=== PATIENT | female | born 1965 | race Caucasian/White ===

== ENCOUNTER 2022-12-03 09:37 | Emergency (ER) | payer OTHER ==
[~2022-12-03] VITALS: Ht 149.9 cm; Wt 56.2 kg
[2022-12-03 09:43] VITALS: BP 187/92; PULSE 67; RESP 18; TEMP 98; O2SAT 99
--- NOTE | 2022-12-03 10:14 | NUR ---
57YO F BIBA PRESENTS W/CP, FACIAL NUMBNESS, HERNANDEZ, DIZZY, SOB, BLURRY VISION THIS AM 0900 WHILE WORKING. PT STATES CP, FACE NUMBNESS HAS BEEN ONGOING X 2MTHS OFF AND ON, SAW PCP-INCREASED HTN MEDS. PT STATES FAMILY HX OF STROKE: FATHER & SISTER. SYMMETRICAL FACE/SMILE/BROW LIFT. 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 PT DENIES N,V,D, FEVER, FLU SYMPTOMS, CHILLS. SKIN INTACT/DRY, NAD, SAFETY MAINTAINED, CALL LIGHT IN REACH. HX: HTN, GERD KNA
[2022-12-03 11:45] LABS: BASOPHILS % (AUTO) 0.5 % (0.0-2.0); EOSINOPHILS # (AUTO) 0.1 K/uL (0-0.4); EOSINOPHILS % (AUTO) 1.9 % (0.0-4.0); HEMATOCRIT 37.5 % (36-48); HEMOGLOBIN 12.5 g/dL (12.0-16.0); LYMPHOCYTES # (AUTO) 2.6 K/uL (2.5-16.5); LYMPHOCYTES % (AUTO) 40.1 % (20.5-51.1); MEAN CORPUSCULAR HEMOGLOBIN 28 pg (27-31); MEAN CORPUSCULAR HGB CONC 33 g/dL (33-37); MEAN CORPUSCULAR VOLUME 83.2 fL (80-94); MONOCYTES # (AUTO) 0.4 K/uL (0.8-1.0); MONOCYTES % (AUTO) 6.1 % (1.7-9.3); NEUTROPHILS # (AUTO) 3.4 K/uL (1.8-7.7); NEUTROPHILS % (AUTO) 51.4 % (42.2-75.2); PLATELET COUNT (AUTO) 263 K/uL (140-450); RED BLOOD CELL COUNT(AUTO) 4.51 MIL/uL (4.20-5.40); RED CELL DISTRIBUTION WIDTH 14.5 % (11.6-13.7); WHITE BLOOD COUNT (AUTO) 6.6 K/uL (4.8-10.8)
[2022-12-03 12:19] LABS: ALBUMIN 3.8 g/dL (3.4-5.0); ANION GAP 12.2 (8-16); CARBON DIOXIDE 26.8 mmol/L (21-32); CREATININE 0.7 mg/dL (0.6-1.3); TOTAL BILIRUBIN 0.6 mg/dL (0.0-1.0)
[2022-12-03 12:45] LABS: LIPASE 201 U/L (73-393)
[2022-12-03 14:00] VITALS: BP 152/78; PULSE 61; RESP 12; TEMP 98; O2SAT 97
--- NOTE | 2022-12-03 14:00 | NUR ---
Patient discharged with v/s stable. Written and verbal after care instructions given and explained. Patient verbalized understanding. Ambulatory with FAMILY Steady gait. All questions addressed prior to discharge. Advised to follow up with PMD. XRAY AND LAB COPY GIVEN
--- NOTE | 2022-12-03 14:00 | NUR ---
IV removed, catheter intact and site benign. Applied folded 4x4 gauze and tape to stop bleeding.
--- NOTE | 2022-12-03 14:05 | NUR ---
The patient's care was reviewed and supervised by Kathy Orozco, RN, RN.
== END 2022-12-03 14:05 | disposition home or self-care (01) ==
LOC: MED 09:37
DX: R07.9 Chest pain, unspecified (principal); R51.9 Headache, unspecified; R10.9 Unspecified abdominal pain; R20.0 Anesthesia of skin; R42 Dizziness and giddiness; I10 Essential (primary) hypertension; K21.9 Gastro-esophageal reflux disease without esophagitis
CPT/HCPCS: 36415; 71045; 80053; 83690; 83880; 84484; 85025; 93005; 99285